=== PATIENT | female | born 1975 | race Hispanic/Latino ===

== ENCOUNTER 2019-04-23 10:15 | Emergency (ER) | payer SELFPAY ==
[2019-04-23] MEDS ORDERED: KETOROLAC TROMETHAMINE 15MG/ML ONE (11:05)
[2019-04-23] MEDS ORDERED: ONDANSETRON HCL 4 MG/2 ML VIAL ONE (11:25)
[2019-04-23 11:26] LABS: BASOPHILS % (AUTO) 1.2 % (0.0-5.0); EOSINOPHILS % (AUTO) 4.3 % (0.0-8.0); HEMATOCRIT 40.3 % (36-48); MEAN CORPUSCULAR HGB CONC 34.4 g/dL (32.0-36.0); MEAN CORPUSCULAR VOLUME 84.3 fL (79-99); MONOCYTES % (AUTO) 7.4 % (3.0-13.0); NEUTROPHILS % (AUTO) 59.1 % (40.0-77.0); NUCLEATED RED BLOOD CELLS 0.2 % (0.0-0.19); PLATELET COUNT (AUTO) 211 K/uL (130-400); RED BLOOD CELL COUNT(AUTO) 4.78 MIL/uL (4.00-5.50); RED CELL DISTRIBUTION WIDTH 13.4 % (11.0-15.5); WHITE BLOOD COUNT (AUTO) 10.3 K/uL (4.8-10.8)
[2019-04-23 11:36] LABS: CREATININE 0.9 mg/dL (0.5-1.5); POTASSIUM 3.7 mmol/L (3.5-5.1)
[2019-04-23 11:40] LABS: ALBUMIN 3.7 g/dL (3.5-5.0); BILIRUBIN,TOTAL 0.5 mg/dL (0.2-1.0); TOTAL PROTEIN, SERUM 7.4 g/dL (6.0-8.3)
[2019-04-23 12:45] LABS: APPEARANCE,URINE Clear (CLEAR); BILIRUBIN,URINE Negative (NEGATIVE); COLOR,URINE Yellow (YELLOW); GLUCOSE, URINE (UA) Negative (NEGATIVE); KETONES,URINE Negative (NEGATIVE); LEUKOCYTE ESTERASE ,URINE Negative (NEGATIVE); NITRATE,URINE Negative (NEGATIVE); OCCULT BLOOD,URINE Small (NEGATIVE); PROTEIN,URINE Negative (NEGATIVE); UROBILINOGEN,URINE 0.2 mg/dL (0.2-1.0)
[2019-04-23 13:08] LABS: BACTERIA,URINE Rare /HPF (None Seen); RBC,URINE 0-1 /HPF (0-1); SQUAMOUS EPITHELIAL CELL,UR 0-2 /HPF (0-2); WBC,URINE None Seen /HPF (0-1)
== END 2019-04-23 13:15 | disposition home or self-care (01) ==
LOC: EDH 10:15
DX: S29.011A Strain of muscle and tendon of front wall of thorax, initial encounter (principal); R10.11 Right upper quadrant pain; E78.00 Pure hypercholesterolemia, unspecified; Z90.710 Acquired absence of both cervix and uterus; Z88.0 Allergy status to penicillin; Z88.5 Allergy status to narcotic agent; X58.XXXA Exposure to other specified factors, initial encounter; Y93.89 Activity, other specified; Y92.89 Other specified places as the place of occurrence of the external cause; Y99.8 Other external cause status
CPT/HCPCS: 36415; 71045; 74021; 80053; 81001; 83690; 85025; 96374; 96375; 99285; J1885; J2405

== ENCOUNTER 2021-08-16 11:04 | Emergency (ER) | payer SELFPAY ==
[~2021-08-16] VITALS: Ht 157.5 cm; Wt 65.8 kg
[2021-08-16 11:43] LABS: BASOPHILS % (AUTO) 0.7 % (0.0-5.0); EOSINOPHILS % (AUTO) 4.1 % (0.0-8.0); LYMPHOCYTES % (AUTO) 28.1 % (21.0-51.0); MEAN CORPUSCULAR HEMOGLOBIN 27.9 pg (27.0-33.0); MEAN CORPUSCULAR HGB CONC 33.6 g/dL (32.0-36.0); MEAN CORPUSCULAR VOLUME 83.2 fL (79-99); MONOCYTES % (AUTO) 9.2 % (3.0-13.0); NEUTROPHILS % (AUTO) 57.5 % (40.0-77.0); PLATELET COUNT (AUTO) 203 K/uL (130-400); RED BLOOD CELL COUNT(AUTO) 4.69 MIL/uL (4.00-5.50); RED CELL DISTRIBUTION WIDTH 12.6 % (11.0-15.5); WHITE BLOOD COUNT (AUTO) 10.4 K/uL (4.8-10.8)
[2021-08-16 11:56] LABS: CREATININE 0.7 mg/dL (0.5-1.5); POTASSIUM 3.7 mmol/L (3.5-5.1)
[2021-08-16 11:59] LABS: INR 0.99 (0.85-1.15); PROTHROMBIN TIME 10.8 SEC (9.6-11.6)
[2021-08-16 12:01] LABS: ALBUMIN 3.9 g/dL (3.5-5.0); BILIRUBIN,TOTAL 0.5 mg/dL (0.2-1.0); TOTAL PROTEIN, SERUM 7.3 g/dL (6.0-8.3)
[2021-08-16 12:25] LABS: APPEARANCE,URINE Clear (CLEAR); BILIRUBIN,URINE Negative (NEGATIVE); COLOR,URINE Yellow (YELLOW); GLUCOSE, URINE (UA) Negative (NEGATIVE); KETONES,URINE Negative (NEGATIVE); LEUKOCYTE ESTERASE ,URINE Negative (NEGATIVE); NITRATE,URINE Negative (NEGATIVE); OCCULT BLOOD,URINE Small (NEGATIVE); PH,URINE 6.5 (5.0-8.0); PROTEIN,URINE Negative (NEGATIVE); UROBILINOGEN,URINE 0.2 mg/dL (0.2-1.0)
[2021-08-16 12:29] LABS: BACTERIA,URINE Rare /HPF (None Seen); HCG,QUAL RESULT NEGATIVE (NEGATIVE); RBC,URINE 0-1 /HPF (0-1); SQUAMOUS EPITHELIAL CELL,UR Rare /HPF (0-2); WBC,URINE 0-1 /HPF (0-1)
[2021-08-16] MEDS ORDERED: KETOROLAC 30MG VIAL (30MG/ML) IM ONE (13:00)
[2021-08-16] MEDS ORDERED: KETOROLAC 30MG VIAL (30MG/ML) ONE (14:11)
[2021-08-16 14:17] VITALS: BP 118/75
[2021-08-16] MEDS ORDERED: CYCL5TAB PO (14:36)
[2021-08-16] MEDS ORDERED: BROM237S PO (14:36)
[2021-08-16] MEDS ORDERED: AZIT250T9 PO (14:36)
[2021-08-16] MEDS ORDERED: ALBU8.5H8 IH (14:36)
[2021-08-16] MEDS ORDERED: IBUP-2070 PO (14:36)
== END 2021-08-16 14:44 | disposition home or self-care (01) ==
LOC: EDH 11:04
DX: J45.901 Unspecified asthma with (acute) exacerbation (principal); M94.0 Chondrocostal junction syndrome [Tietze]; Z20.822 Contact with and (suspected) exposure to COVID-19; E11.9 Type 2 diabetes mellitus without complications; M32.9 Systemic lupus erythematosus, unspecified; Z88.0 Allergy status to penicillin; Z88.5 Allergy status to narcotic agent; Z79.1 Long term (current) use of non-steroidal anti-inflammatories (NSAID); Z90.49 Acquired absence of other specified parts of digestive tract; Z90.710 Acquired absence of both cervix and uterus
CPT/HCPCS: 36415; 71045; 80053; 81001; 81025; 84484 ×2; 85025; 85610; 87635; 93005; 96372; 99285; C9803; J1885

== ENCOUNTER 2023-04-14 12:44 | Emergency (ER) | payer OTHER, SELFPAY ==
[~2023-04-14] VITALS: Ht 157.5 cm; Wt 52.2 kg
[~2023-04-14 12:44] MED LIST: ALBU8.5H8 IH; AZIT250T9 PO; BROM237S PO; CYCL5TAB PO; IBUP-2070 PO
[2023-04-14 13:29] LABS: BASOPHILS # (AUTO) 0.06 K/uL (0.00-0.20); BASOPHILS % (AUTO) 0.7 % (0.0-5.0); EOSINOPHILS # (AUTO) 0.39 K/uL (0.00-0.70); EOSINOPHILS % (AUTO) 4.4 % (0.0-8.0); HEMATOCRIT 41.6 % (36-48); IMMATURE GRANULOCYTE ABSOLUTE 0.03 K/uL (0-1); LYMPHOCYTES # (AUTO) 3.3 K/uL (1.0-4.8); LYMPHOCYTES % (AUTO) 37.7 % (21.0-51.0); MEAN CORPUSCULAR HEMOGLOBIN 28.4 pg (27.0-33.0); MEAN CORPUSCULAR HGB CONC 34.1 g/dL (32.0-36.0); MEAN CORPUSCULAR VOLUME 83.2 fL (79-99); MONOCYTES # (AUTO) 0.7 K/uL (0.1-1.0); MONOCYTES % (AUTO) 7.3 % (3.0-13.0); NEUTROPHILS # (AUTO) 4.4 K/uL (1.8-7.7); NEUTROPHILS % (AUTO) 49.6 % (40.0-77.0); PLATELET COUNT (AUTO) 245 K/uL (130-400); RED CELL DISTRIBUTION WIDTH 12.6 % (11.0-15.5); WHITE BLOOD COUNT (AUTO) 8.9 K/uL (4.8-10.8)
[2023-04-14 13:56] LABS: CREATININE 0.8 mg/dL (0.5-1.5)
[2023-04-14 14:00] LABS: ALBUMIN 3.9 g/dL (3.5-5.0); BILIRUBIN,TOTAL 0.5 mg/dL (0.2-1.0); TOTAL PROTEIN, SERUM 7.2 g/dL (6.0-8.3)
[2023-04-14] MEDS ORDERED: MECLIZINE HCL 25 MG TABLET PO ONE (14:30)
[2023-04-14] MEDS ORDERED: SOLU-MEDROL 125MG VIAL IVP ONE (14:30)
[2023-04-14] MEDS ORDERED: PROMETHAZINE HCL 25 MG/ML 1ML AMPULE IM ONE (14:30)
[2023-04-14 18:23] VITALS: BP 141/73; PULSE 97; RESP 17; O2SAT 97
[2023-04-14 20:46] LABS: ADD UA MICROSCOPIC YES; APPEARANCE,URINE CLEAR (CLEAR); BILIRUBIN,URINE NEGATIVE (NEGATIVE); COLOR,URINE COLORLESS (YELLOW); GLUCOSE, URINE (UA) NEGATIVE (NEGATIVE); KETONES,URINE NEGATIVE (NEGATIVE); LEUKOCYTE ESTERASE ,URINE NEGATIVE Leu/uL (NEGATIVE); NITRATE,URINE NEGATIVE (NEGATIVE); OCCULT BLOOD,URINE NEGATIVE (NEGATIVE); PROTEIN,URINE NEGATIVE (NEGATIVE); UROBILINOGEN,URINE 0.2 mg/dL (0.2-1.0)
[2023-04-14 20:48] LABS: BACTERIA,URINE MOD /HPF (None Seen); MUCUS,URINE RARE LPF (None Seen); SQUAMOUS EPITHELIAL CELL,UR FEW /HPF (0-2)
[2023-04-15] MEDS ORDERED: ATOR10TA69 PO (01:14)
[2023-04-15] MEDS ORDERED: MECL-160 PO (01:14)
[2023-04-18 15:14] LABS: ANTI-SCLERODERMA 70 <0.2 AI (0.0-0.9)
== END 2023-04-15 01:24 | disposition home or self-care (01) ==
LOC: EDH 12:44
DX: I70.90 Unspecified atherosclerosis (principal); R55 Syncope and collapse; J45.909 Unspecified asthma, uncomplicated; Z90.49 Acquired absence of other specified parts of digestive tract; Z90.89 Acquired absence of other organs; Z90.710 Acquired absence of both cervix and uterus; Z79.899 Other long term (current) drug therapy; Z98.890 Other specified postprocedural states; Z88.0 Allergy status to penicillin; Z88.5 Allergy status to narcotic agent; Z88.8 Allergy status to other drugs, medicaments and biological substances
CPT/HCPCS: 99285; 70551; 96374; 70450; 84484; 80053; 85025; 85651; 86038; 86235 ×7; 86215; 86140; 81001; 36415; 70547; 93005; 70544; 96372; J2930; J2550

== ENCOUNTER 2023-08-04 18:18 | Emergency (ER) | payer OTHER ==
[~2023-08-04] VITALS: Ht 157.5 cm; Wt 68.0 kg
[~2023-08-04 18:18] MED LIST changes: +ATOR10TA69 PO; +MECL-302 PO
[2023-08-04] MEDS ORDERED: METH4TAB3 PO (19:15)
[2023-08-04] MEDS ORDERED: NAPR-1174 PO (19:15)
[2023-08-04] MEDS ORDERED: OMEP40CA21 PO (19:18)
[2023-08-04 19:23] VITALS: BP 136/72; PULSE 80; RESP 18; O2SAT 98
[2023-08-04] MEDS ORDERED: KETOROLAC 60 MG VIAL (30MG/ML) IM ONE (19:30)
[2023-08-04] MEDS ORDERED: DEXAMETHASONE SOD PHOSPHATE 4 MG/ML 1ML VIAL IM ONE (19:30)
== END 2023-08-04 19:36 | disposition home or self-care (01) ==
LOC: EDH 18:18
DX: M32.8 Other forms of systemic lupus erythematosus (principal); J45.909 Unspecified asthma, uncomplicated; Z88.0 Allergy status to penicillin; Z88.8 Allergy status to other drugs, medicaments and biological substances; Z90.89 Acquired absence of other organs; Z90.49 Acquired absence of other specified parts of digestive tract; Z90.710 Acquired absence of both cervix and uterus
CPT/HCPCS: 99284; 96372 ×2; J1100; J1885

== ENCOUNTER 2023-08-07 09:03 | Emergency (ER) | payer OTHER ==
[~2023-08-07] VITALS: Ht 157.5 cm; Wt 67.1 kg
[~2023-08-07 09:03] MED LIST changes: +METH4TAB3 PO; +NAPR-1174 PO; +OMEP40CA21 PO
[2023-08-07 09:05] VITALS: BP 137/76; PULSE 82; RESP 16
[2023-08-07 10:23] LABS: APPEARANCE,URINE CLEAR (CLEAR); BILIRUBIN,URINE NEGATIVE (NEGATIVE); COLOR,URINE COLORLESS (YELLOW); GLUCOSE, URINE (UA) NEGATIVE (NEGATIVE); KETONES,URINE NEGATIVE (NEGATIVE); LEUKOCYTE ESTERASE ,URINE NEGATIVE Leu/uL (NEGATIVE); NITRATE,URINE NEGATIVE (NEGATIVE); OCCULT BLOOD,URINE SMALL (NEGATIVE); PH,URINE 5.5 (5.0-8.0); PROTEIN,URINE NEGATIVE (NEGATIVE); UROBILINOGEN,URINE 0.2 mg/dL (0.2-1.0)
[2023-08-07 10:26] LABS: RAPID GROUP A STREP negative (NEGATIVE)
[2023-08-07 10:30] LABS: SARS-CoV-2, RNA, NAAT NEGATIVE SARS CoV-2 (NEGATIVE)
[2023-08-07] MEDS ORDERED: CYCLOBENZAPRINE HCL 10 MG TABLET PO ONE (10:30)
[2023-08-07 10:35] LABS: ADD UA MICROSCOPIC YES
[2023-08-07 10:36] LABS: INFLUENZA TYPE A Negative For Type A (NEGATIVE); INFLUENZA TYPE B Negative For Type B (NEGATIVE)
[2023-08-07 10:39] LABS: MUCUS,URINE RARE LPF (None Seen); RBC,URINE 0-1 /HPF (0-1); SQUAMOUS EPITHELIAL CELL,UR FEW /HPF (0-2); WBC,URINE 0-1 /HPF (0-1)
[2023-08-07] MEDS ORDERED: HYDR200T75 PO (11:02)
== END 2023-08-07 12:07 | disposition home or self-care (01) ==
LOC: EDH 09:03
DX: S16.1XXA Strain of muscle, fascia and tendon at neck level, initial encounter (principal); S86.812A Strain of other muscle(s) and tendon(s) at lower leg level, left leg, initial encounter; M32.9 Systemic lupus erythematosus, unspecified; J45.909 Unspecified asthma, uncomplicated; Z20.822 Contact with and (suspected) exposure to COVID-19; Z90.49 Acquired absence of other specified parts of digestive tract; Z90.89 Acquired absence of other organs; Z90.710 Acquired absence of both cervix and uterus; Z98.890 Other specified postprocedural states; Z79.899 Other long term (current) drug therapy; Z88.0 Allergy status to penicillin; Z88.5 Allergy status to narcotic agent; Z88.8 Allergy status to other drugs, medicaments and biological substances; X58.XXXA Exposure to other specified factors, initial encounter; Y93.89 Activity, other specified; Y92.89 Other specified places as the place of occurrence of the external cause; Y99.8 Other external cause status
CPT/HCPCS: 99283; 87635; 87880; 87804 ×2; 81001; C9803

== ENCOUNTER 2024-02-10 02:36 | Emergency (ER) | payer OTHER ==
[~2024-02-10] VITALS: Ht 157.5 cm; Wt 64.4 kg
[~2024-02-10 02:36] MED LIST changes: +HYDR200T75 PO
[2024-02-10] MEDS: MAG/ALUM/SIMETH 30 ML UDCUP PO ONE (03:29)
[2024-02-10] MEDS: LACTATED RINGERS 1000ML 1,000 ML IV ONE (03:29)
[2024-02-10] MEDS: LIDOCAINE HCL 2% VISCOUS 15 ML UDCUP PO ONE (03:29)
[2024-02-10] MEDS: PANTOPRAZOLE 40 MG/VIAL IVP ONE (03:29)
[2024-02-10 03:53] LABS: BASOPHILS # (AUTO) 0.04 K/uL (0.00-0.20); BASOPHILS % (AUTO) 0.5 % (0.0-5.0); EOSINOPHILS # (AUTO) 0.46 K/uL (0.00-0.70); EOSINOPHILS % (AUTO) 5.4 % (0.0-8.0); HEMATOCRIT 41.4 % (36-48); IMMATURE GRANULOCYTE ABSOLUTE 0.02 K/uL (0-1); LYMPHOCYTES # (AUTO) 3.5 K/uL (1.0-4.8); LYMPHOCYTES % (AUTO) 41.6 % (21.0-51.0); MEAN CORPUSCULAR HEMOGLOBIN 27.8 pg (27.0-33.0); MEAN CORPUSCULAR HGB CONC 33.3 g/dL (32.0-36.0); MEAN CORPUSCULAR VOLUME 83.3 fL (79-99); MONOCYTES # (AUTO) 0.7 K/uL (0.1-1.0); MONOCYTES % (AUTO) 8.4 % (3.0-13.0); NEUTROPHILS # (AUTO) 3.7 K/uL (1.8-7.7); NEUTROPHILS % (AUTO) 43.9 % (40.0-77.0); PLATELET COUNT (AUTO) 224 K/uL (130-400); RED BLOOD CELL COUNT(AUTO) 4.97 MIL/uL (4.00-5.50); RED CELL DISTRIBUTION WIDTH 12.4 % (11.0-15.5); WHITE BLOOD COUNT (AUTO) 8.5 K/uL (4.8-10.8)
[2024-02-10] MEDS ORDERED: DIAZEPAM 5 MG/ML 2 ML SYG IVP ONE (04:00)
[2024-02-10 04:04] LABS: CREATININE 0.7 mg/dL (0.5-1.0); POTASSIUM 3.9 mmol/L (3.5-5.1)
[2024-02-10 04:06] LABS: INR 0.95 (0.85-1.15); PROTHROMBIN TIME 10.3 SEC (9.6-11.6)
[2024-02-10] MEDS: DIAZEPAM 2 MG TAB PO ONE (04:06)
[2024-02-10 04:07] LABS: PARTIAL THROMBOPLASTIN TIME 26.3 SEC (26.3-35.5)
[2024-02-10 04:09] LABS: MAGNESIUM 2.1 mg/dL (1.80-2.40)
[2024-02-10 04:27] LABS: B-TYPE NATRIURETIC PEPTIDE 6 pg/mL (0-100)
[2024-02-10] MEDS ORDERED: ESCI10TA PO (04:42)
[2024-02-10 05:09] VITALS: BP 128/74; PULSE 74; RESP 18; O2SAT 98
== END 2024-02-10 05:34 | disposition home or self-care (01) ==
LOC: EDH 02:36
DX: F41.9 Anxiety disorder, unspecified (principal); Z79.899 Other long term (current) drug therapy; Z88.0 Allergy status to penicillin; Z88.5 Allergy status to narcotic agent; Z90.49 Acquired absence of other specified parts of digestive tract; Z90.710 Acquired absence of both cervix and uterus
CPT/HCPCS: 99285; 96374; 71045; 96361; 82550; 83735; 84484; 80048; 83880; 85025; 85610; 85730; 36415; 93005; J7120